=== PATIENT | female | born 1955 | race Caucasian/White ===

== ENCOUNTER → 2017-12-30 11:51 | Outpatient (CLI) | payer BC, SELFPAY ==
--- NOTE | 2017-12-30 | DI.MG.S_ITS ---
BILATERAL DIGITAL SCREENING MAMMOGRAM 3D/2D WITH CAD: 12/30/2017 Comparison is made to exams dated: 12/16/2016 mammogram, 10/27/2015 mammogram, and 09/23/2014 mammogram - [facility]. The tissue of both breasts is heterogeneously dense. This may lower the sensitivity of mammography. Current study was also evaluated with a Computer Aided Detection (CAD) system. No significant masses, calcifications, or other findings are seen in either breast. There has been no significant interval change. IMPRESSION: NEGATIVE There is no mammographic evidence of malignancy. A 1 year screening mammogram is recommended. This exam was interpreted at Station ID: [id number]. NOTE: For mammograms, a report in lay terms will be sent to the patient. Approximately 15% of breast malignancies will not be visualized mammographically. In the management of a palpable breast mass, a negative mammogram must not discourage biopsy of a clinically suspicious lesion. Electronically Signed By: Chinmay sharp/mele:12/30/2017 15:28:55 letter sent: Normal Exam ACR BI-RADS Category 1: Negative 3341F
== END ==
PROVIDERS: PCP Family Medicine; Visit Provider Family Medicine
DX: Z12.31 Encounter for screening mammogram for malignant neoplasm of breast (principal)
CPT/HCPCS: 77063; 77067

== ENCOUNTER → 2018-08-21 10:03 | Outpatient (CLI) | payer BC, SELFPAY ==
[2018-08-21 11:36] LABS: Alanine Aminotransferase 30 IU/L (9-52); Albumin 4.7 g/dL (3.5-5.0); Albumin Globulin Ratio 1.6 (1.0-2.8); Alkaline Phosphatase 68 U/L (38-126); Aspartate Aminotransferase 39 IU/L (14-36); BUN Creatinine Ratio 22.9 (6-22); Bilirubin Total 0.5 mg/dL (0.2-1.3); Blood Urea Nitrogen 16 mg/dL (7-17); Calcium 9.8 mg/dL (8.4-10.2); Carbon Dioxide 32 mmol/L (22-32); Chloride 100 mmol/L (98-107); Cholesterol 204 mg/dL (140-199); Estimated Glomerular Filt Rate > 60.0 mL/min (>60); Glucose 91 mg/dL (80-110); HDL Cholesterol 75 mg/dL (40-60); HEMOLYSIS < 15 (0-50); LDL Cholesterol Calculated 116 mg/dL (<100); Potassium 4.3 mmol/L (3.4-5.1); Sodium 139 mmol/L (137-145); Total Protein 7.7 g/dL (6.3-8.2); Triglycerides 67 mg/dL (35-150)
[2018-08-21 11:53] LABS: Vitamin D 25 Hydroxy (D3) 36.8 ng/mL (30.0-100.0)
== END ==
PROVIDERS: PCP Family Medicine; Visit Provider Family Medicine
DX: E78.5 Hyperlipidemia, unspecified (principal); Z00.00 Encounter for general adult medical examination without abnormal findings; Z13.1 Encounter for screening for diabetes mellitus; M81.0 Age-related osteoporosis without current pathological fracture; Z13.220 Encounter for screening for lipoid disorders; Z13.6 Encounter for screening for cardiovascular disorders; Z82.49 Family history of ischemic heart disease and other diseases of the circulatory system
CPT/HCPCS: 36415; 80053; 80061; 82306

== ENCOUNTER → 2018-12-31 08:42 | Outpatient (CLI) | payer BC, SELFPAY ==
--- NOTE | 2018-12-31 | DI.MG.S_ITS ---
BILATERAL DIGITAL SCREENING MAMMOGRAM 3D/2D WITH CAD: 12/31/2018 CLINICAL: Routine screening. Comparison is made to exams dated: 12/30/2017 mammogram, 12/16/2016 mammogram, and 10/27/2015 mammogram - [facility]. The tissue of both breasts is heterogeneously dense. This may lower the sensitivity of mammography. Current study was also evaluated with a Computer Aided Detection (CAD) system. No significant masses, calcifications, or other findings are seen in either breast. There has been no significant interval change. IMPRESSION: NEGATIVE There is no mammographic evidence of malignancy. A 1 year screening mammogram is recommended. This exam was interpreted at Station ID: [id number]. NOTE: For mammograms, a report in lay terms will be sent to the patient. Approximately 15% of breast malignancies will not be visualized mammographically. In the management of a palpable breast mass, a negative mammogram must not discourage biopsy of a clinically suspicious lesion. Electronically Signed By: Brandie julian/mele:12/31/2018 09:11:56 letter sent: Normal Exam ACR BI-RADS Category 1: Negative 3341F
== END ==
PROVIDERS: PCP Family Medicine; Visit Provider Family Medicine
DX: Z12.31 Encounter for screening mammogram for malignant neoplasm of breast (principal)
CPT/HCPCS: 77063; 77067

== ENCOUNTER → 2019-03-30 08:39 | Outpatient (CLI) | payer BC, SELFPAY ==
[2019-03-30 11:03] LABS: Alanine Aminotransferase 30 IU/L (<35); Albumin 4.7 g/dL (3.5-5.0); Albumin Globulin Ratio 1.7 (1.0-2.8); Alkaline Phosphatase 56 U/L (38-126); Aspartate Aminotransferase 46 IU/L (14-36); Bilirubin Total 0.7 mg/dL (0.2-1.3); Blood Urea Nitrogen 15 mg/dL (7-17); Calcium 9.9 mg/dL (8.4-10.2); Carbon Dioxide 31 mmol/L (22-32); Chloride 98 mmol/L (98-107); Estimated Glomerular Filt Rate > 60.0 mL/min (>60); Globulin 2.7 g/dL (1.7-4.1); Glucose 77 mg/dL (80-110); HEMOLYSIS < 15 (0-50); Potassium 4.9 mmol/L (3.4-5.1); Sodium 138 mmol/L (137-145); Total Protein 7.4 g/dL (6.3-8.2)
== END ==
PROVIDERS: PCP Family Medicine; Visit Provider Family Medicine
DX: R94.5 Abnormal results of liver function studies (principal)
CPT/HCPCS: 36415; 80053

== ENCOUNTER → 2019-04-09 10:12 | Outpatient (CLI) | payer BC, SELFPAY ==
[2019-04-13 09:09] LABS: Hepatitis A Antibody IgM NONREACTIVE; Hepatitis Acute Panel Interp 0.04; Hepatitis B Core Antibody IgM NONREACTIVE; Hepatitis B Surface Antigen NONREACTIVE; Hepatitis C Antibody NONREACTIVE
== END ==
PROVIDERS: PCP Family Medicine; Visit Provider Family Medicine
DX: R94.5 Abnormal results of liver function studies (principal)
CPT/HCPCS: 36415; 80074

== ENCOUNTER → 2019-07-28 10:58 | Outpatient (CLI) | payer BC, SELFPAY ==
--- NOTE | 2019-07-28 | DI.MRI.S_ITS ---
PROCEDURE: MR BRAIN (IAC) WWO CON INDICATIONS: Unspecified sensorineural hearing loss TECHNIQUE: Noncontrast sagittal T1 spin echo, axial FLAIR, axial gradient echo, axial diffusion and ADC through the brain. Axial thin-slice 3D CISS (with coronal reformatted images), coronal TruFISP, axial T1 spin echo with fat saturation through the internal auditory canals. After the administration of contrast, thin slice axial and coronal T1 spin echo with fat saturation through the internal auditory canals, and axial T1 spin echo with fat saturation through the brain. COMPARISON: None. FINDINGS: Image quality: Excellent. Cerebellopontine angles: No cerebellopontine angle masses. Inner ear structures appear normally formed. No suspicious enhancement in the internal auditory canal or along the course of the 7th cranial nerve. CSF spaces: Ventricles are normal in size and shape. No extra-axial fluid collections. Basal cisterns are patent. Brain: No intracranial bleeds or mass effects. Olivares-white matter interface is intact. No abnormal intracranial enhancement. Brain parenchymal volume loss is seen. Chronic small vessel ischemic changes are seen. Diffusion weighted images demonstrate no acute ischemic insults. Brainstem appears normal. Normal intravascular flow voids are present. A nonenhancing likely arachnoid cyst can be seen along the medial aspect of the distal anterior tip of the temporal horn of the left lateral ventricle. Skull and face: Calvarial marrow signal is normal. Orbits appear normal. Sinuses: Focal mild to moderate mucosal thickening is seen within the right maxillary sinus. Sinuses and mastoids are otherwise clear. IMPRESSION: No masses or abnormal enhancement are seen within the cerebellopontine angle cisterns or within the internal auditory canals. Note is made of age-appropriate brain parenchymal volume loss and chronic small vessel ischemic changes. Incidental note is made of: Focal right maxillary sinus disease Likely arachnoid cyst adjacent to the temporal tip of the left lateral ventricle Dictated by: Lamonte Dugan M.D. on 07/28/2019 at 11:25 Approved by: Lamonte Dugan M.D. on 07/28/2019 at 11:29
== END ==
PROVIDERS: PCP Family Medicine; Referring Provider Otolaryngology; Visit Provider Otolaryngology
DX: H90.5 Unspecified sensorineural hearing loss (principal); J32.0 Chronic maxillary sinusitis
CPT/HCPCS: 70553

== ENCOUNTER → 2019-12-23 | Outpatient (CLI) | payer BC, SELFPAY | PROVIDERS: PCP Family Medicine; Referring Provider Internal Medicine; Visit Provider Internal Medicine | DX: Z23 Encounter for immunization (principal) | CPT/HCPCS: 90471; 90686 ==

== ENCOUNTER → 2020-01-10 13:14 | Outpatient (CLI) | payer BC, SELFPAY ==
--- NOTE | 2020-01-10 13:16 | DI.US.S_ITS ---
ULTRASOUND OF LEFT BREAST: 01/10/2020 CLINICAL: Focal left breast pain x 3 weeks. Comparison is made to exams dated: 01/10/2020 mammogram, 12/31/2018 mammogram, 12/30/2017 mammogram, 12/16/2016 mammogram, 10/27/2015 mammogram, and 09/23/2014 mammogram - [facility]. Real-time ultrasound of the left breast was performed. Olivares scale images of the real-time examination were reviewed. No significant abnormalities were seen sonographically in the left breast. Specifically, no finding to explain the patient's pain. IMPRESSION: NEGATIVE There is no sonographic correlate to the patient's left breast pain, and no evidence of malignancy. Return to annual mammogram screening schedule is recommended. Findings and recommendations were conveyed to the patient at time of exam. This exam was interpreted at Station ID: [id number]. Electronically Signed By: Fern walters/:01/10/2020 14:28:37 letter sent: Normal Exam Ultrasound BI-RADS: 1 Negative
--- NOTE | 2020-01-10 13:16 | DI.MG.S_ITS ---
BILATERAL DIGITAL DIAGNOSTIC MAMMOGRAM 3D/2D: 01/10/2020 CLINICAL: Left breast pain. Comparison is made to exams dated: 12/31/2018 mammogram, 12/30/2017 mammogram, and 12/16/2016 mammogram - [facility]. The tissue of both breasts is heterogeneously dense. This may lower the sensitivity of mammography. No significant masses, calcifications, or other findings are seen in either breast. Specifically, no finding to explain the patient's lateral breast pain. IMPRESSION: INCOMPLETE: NEEDS ADDITIONAL IMAGING EVALUATION There is no abnormality seen in the left breast to correspond with the pain in the lateral aspect. Ultrasound is recommended for full evaluation and was performed immediately following this exam. This exam was interpreted at Station ID: [id number]. NOTE: For mammograms, a report in lay terms will be sent to the patient. Approximately 15% of breast malignancies will not be visualized mammographically. In the management of a palpable breast mass, a negative mammogram must not discourage biopsy of a clinically suspicious lesion. Electronically Signed By: Fern walters/:01/10/2020 13:58:40 ACR BI-RADS Category 0: Incomplete 3340F
== END ==
PROVIDERS: PCP Family Medicine; Referring Provider Registered Nurse; Visit Provider Registered Nurse
DX: R92.8 Other abnormal and inconclusive findings on diagnostic imaging of breast (principal); N64.4 Mastodynia
CPT/HCPCS: 76642; 77066; G0279

== ENCOUNTER → 2020-04-07 11:07 | Outpatient (CLI) | payer BC, SELFPAY ==
[2020-04-07] MEDS: COVID-19 VACC #1, MRNA(MOD) 100 MCG/0.5 ML VIAL IM (11:15)
== END ==
PROVIDERS: PCP Family Medicine; Visit Provider Internal Medicine
DX: Z23 Encounter for immunization (principal)
CPT/HCPCS: 0011A; 91301

== ENCOUNTER → 2020-05-05 12:12 | Outpatient (CLI) | payer BC, SELFPAY ==
[2020-05-05] MEDS: COVID-19 VACC #2, MRNA(MOD) 100 MCG/0.5 ML VIAL IM (12:26)
== END ==
PROVIDERS: PCP Family Medicine; Visit Provider Internal Medicine
DX: Z23 Encounter for immunization (principal)
CPT/HCPCS: 0012A; 91301

== ENCOUNTER → 2020-08-04 14:51 | Outpatient (CLI) | payer BC, SELFPAY ==
--- NOTE | 2020-08-04 14:53 | DI.MG.S_ITS ---
UNILATERAL LEFT DIGITAL DIAGNOSTIC MAMMOGRAM 3D/2D: 08/04/2020 CLINICAL: Left breast pain. Comparison is made to exams dated: 01/10/2020 ultrasound, 01/10/2020 mammogram, and 12/31/2018 mammogram - [facility]. The tissue of left breast is heterogeneously dense. This may lower the sensitivity of mammography. No significant masses, calcifications, or other findings are seen in the breast. IMPRESSION: INCOMPLETE: NEEDS ADDITIONAL IMAGING EVALUATION There is no abnormality seen in the left breast to correspond with the area of clinical concern and pain in the lower outer quadrant, however, ultrasound is recommended. Future imaging is recommended as follows: 01/10/2021 screening mammogram. This exam was interpreted at Station ID: [id number]. NOTE: For mammograms, a report in lay terms will be sent to the patient. Approximately 15% of breast malignancies will not be visualized mammographically. In the management of a palpable breast mass, a negative mammogram must not discourage biopsy of a clinically suspicious lesion. Electronically Signed By: Tristin King acr/:08/04/2020 15:30:08 Entry: - 08/07/2020 09:58:22 ACR BI-RADS Category 0: Incomplete 3340F
--- NOTE | 2020-08-04 14:53 | DI.US.S_ITS ---
ULTRASOUND OF LEFT BREAST: 08/04/2020 CLINICAL: Diffuse left breast pain. Comparison is made to exams dated: 08/04/2020 mammogram, 01/10/2020 ultrasound, 01/10/2020 mammogram, 12/31/2018 mammogram, and 12/30/2017 mammogram - [facility]. Real-time and continuous wave Doppler ultrasound of the left breast were performed. No abnormality which corresponds with the area of pain is identified. IMPRESSION: NEGATIVE There is no sonographic evidence of malignancy. There is no abnormality seen in the left breast to correspond with the pain in the superior lateral, in the inferior lateral, and in the inferior medial quadrants, however, clinical followup is recommended. A 1 year screening mammogram is recommended. Future imaging is recommended as follows: 01/10/2021 screening mammogram. This exam was interpreted at Station ID: [id number]. Electronically Signed By: Tristin King acr/:08/04/2020 17:37:58 letter sent: Clinical Evaluation Ultrasound BI-RADS: 1 Negative
== END ==
PROVIDERS: PCP Family Medicine; Referring Provider Nurse Practitioner; Visit Provider Nurse Practitioner
DX: R92.2 Inconclusive mammogram (principal); N64.4 Mastodynia; M79.622 Pain in left upper arm; M54.6 Pain in thoracic spine
CPT/HCPCS: 76642; 77065; G0279

== ENCOUNTER → 2020-10-04 08:11 | Outpatient (CLI) | payer BC, SELFPAY ==
[2020-10-04 09:55] LABS: Add Manual Diff / Slide Review NO; Basophils Absolute Auto 0 /uL (0-100); Basophils Percent Auto 1.3 % (0-2); Eosinophils Absolute Auto 200 /uL (0-450); Eosinophils Percent Auto 4.8 % (2-4); Hematocrit 37.6 % (36-46); Hemoglobin 12.5 g/dL (12.0-16.0); Lymphocytes Absolute Auto 1500 /uL (1100-4500); Lymphocytes Percent Auto 42.9 % (25-40); Mean Corpuscular HGB Conc 33.3 % (30-36); Mean Corpuscular Hemoglobin 30.9 PG (26-34); Mean Corpuscular Volume 92.6 fL (80-100); Monocytes Absolute Auto 300 /uL (0-900); Monocytes Percent Auto 9.3 % (3-14); Neutrophils Absolute Auto 1500 /uL (1500-7000); Neutrophils Percent Auto 41.7 % (50-75); Platelet Count 222 X10^3/uL (150-400); Red Blood Cell Count 4.05 X10^6/uL (4.0-5.2); Red Cell Distribution Width 13.8 % (11.6-14.8); White Blood Cell Count 3.6 X10^3/uL (4.5-11.0)
[2020-10-04 10:31] LABS: Alanine Aminotransferase 34 IU/L (<35); Albumin 4.4 g/dL (3.5-5.0); Albumin Globulin Ratio 1.6 (1.0-2.8); Alkaline Phosphatase 57 U/L (38-126); Aspartate Aminotransferase 58 IU/L (14-36); BUN Creatinine Ratio 36.7 (6-22); Bilirubin Total 0.9 mg/dL (0.2-1.3); Blood Urea Nitrogen 22 mg/dL (7-17); Calcium 9.7 mg/dL (8.4-10.2); Carbon Dioxide 28 mmol/L (22-32); Chloride 101 mmol/L (98-107); Cholesterol 211 mg/dL (140-199); Estimated Glomerular Filt Rate > 60.0 mL/min (>60); Globulin 2.8 g/dL (1.7-4.1); Glucose 83 mg/dL (80-110); HDL Cholesterol 81 mg/dL (40-60); HEMOLYSIS 16 (0-50); LDL Cholesterol Calculated 119 mg/dL (<100); Potassium 4.5 mmol/L (3.4-5.1); Sodium 136 mmol/L (137-145); Total Protein 7.2 g/dL (6.3-8.2); Triglycerides 54 mg/dL (35-150)
[2020-10-10 10:43] LABS: TSH w/ Reflex to FT4 3.61 uIU/mL (0.47-4.68)
== END ==
PROVIDERS: PCP Family Medicine; Referring Provider Family Medicine; Visit Provider Family Medicine
DX: G43.009 Migraine without aura, not intractable, without status migrainosus (principal); R53.83 Other fatigue; Z91.09 Other allergy status, other than to drugs and biological substances
CPT/HCPCS: 36415; 80053; 80061; 84443; 85025

== ENCOUNTER → 2020-11-09 11:16 | Outpatient (CLI) | payer BC, SELFPAY ==
--- NOTE | 2020-11-09 11:18 | DI.US.S_ITS ---
PROCEDURE: US EXTREMELY NONVASC UPPER RT INDICATIONS: SWELLING ON RT UPPER ARM TECHNIQUE: Real-time scanning was performed of the right upper arm , with image documentation. COMPARISON: None. FINDINGS: In the area of palpable abnormality, there is subcutaneous fat echogenicity. There are not well defined borders however the area measures roughly 3.3 x 0.5 x 0.9 cm. IMPRESSION: Fat echogenicity in the area of palpable abnormality which likely reflects non encapsulated subcutaneous lipoma. Recommend clinical management and follow-up. Dictated by: Garret Porter M.D. on 11/09/2020 at 13:32 Approved by: Garret Porter M.D. on 11/09/2020 at 13:34
== END ==
PROVIDERS: PCP Family Medicine; Referring Provider Family Medicine; Visit Provider Family Medicine
DX: L72.9 Follicular cyst of the skin and subcutaneous tissue, unspecified (principal)
CPT/HCPCS: 76882

== ENCOUNTER → 2021-01-11 10:49 | Outpatient (CLI) | payer BC, SELFPAY ==
--- NOTE | 2021-01-11 10:50 | DI.MG.S_ITS ---
BILATERAL DIGITAL SCREENING MAMMOGRAM 3D/2D WITH CAD: 01/11/2021 CLINICAL: Routine screening. Comparison is made to exams dated: 08/04/2020 mammogram, 01/10/2020 mammogram, and 12/31/2018 mammogram - [facility]. The tissue of both breasts is heterogeneously dense. This may lower the sensitivity of mammography. Current study was also evaluated with a Computer Aided Detection (CAD) system. No significant masses, calcifications, or other findings are seen in either breast. There has been no significant interval change. IMPRESSION: NEGATIVE There is no mammographic evidence of malignancy. A 1 year screening mammogram is recommended. This exam was interpreted at Station ID: [id number]. NOTE: For mammograms, a report in lay terms will be sent to the patient. Approximately 15% of breast malignancies will not be visualized mammographically. In the management of a palpable breast mass, a negative mammogram must not discourage biopsy of a clinically suspicious lesion. Electronically Signed By: Tristin King acr/penrad:01/11/2021 13:38:41 letter sent: Normal Exam ACR BI-RADS Category 1: Negative 3341F
== END ==
PROVIDERS: PCP Family Medicine; Referring Provider Family Medicine; Visit Provider Family Medicine
DX: Z12.31 Encounter for screening mammogram for malignant neoplasm of breast (principal)
CPT/HCPCS: 77063; 77067

== ENCOUNTER → 2022-01-09 12:10 | Outpatient (CLI) | payer MEDICARE, OTHER, SELFPAY ==
--- NOTE | 2022-01-09 12:13 | DI.RAD.S_ITS ---
PROCEDURE: XR LUMBAR SPINE MIN 4V INDICATIONS: Low back pain TECHNIQUE: 5 views of the lumbar spine were acquired, including bilateral oblique views. COMPARISON: None. FINDINGS: Bones: 5 nonrib-bearing vertebrae are present. Mild dextroscoliosis. Small vertebral body osteophytes. No vertebral body compression fractures. No suspicious bony lesions. Soft tissues: Overlying bowel gas pattern is normal. No suspicious soft tissue calcifications. Oblique images: No pars defects. IMPRESSION: No compression fracture. Mild scoliosis and degenerative change. Dictated by: Tristin Mendoza M.D. on 01/09/2022 at 15:00 Approved by: Tristin Mendoza M.D. on 01/09/2022 at 15:01
== END ==
PROVIDERS: PCP Family Medicine; Referring Provider Nurse Practitioner Family; Visit Provider Nurse Practitioner Family
DX: M54.50 Low back pain, unspecified (principal); M41.9 Scoliosis, unspecified
CPT/HCPCS: 72110

== ENCOUNTER → 2022-01-14 11:32 | Outpatient (CLI) | payer MEDICARE, OTHER, SELFPAY ==
--- NOTE | 2022-01-14 | DI.MG.S_ITS ---
BILATERAL DIGITAL SCREENING MAMMOGRAM 3D/2D WITH CAD: 01/14/2022 CLINICAL: Routine screening. Comparison is made to exams dated: 01/11/2021 mammogram, 08/04/2020 mammogram, 01/10/2020 mammogram, and 12/31/2018 mammogram - [facility]. Both breasts are heterogeneously dense, which may obscure small masses (category c / 51-75% glandular tissue). Current study was also evaluated with a Computer Aided Detection (CAD) system. No significant masses, calcifications, or other findings are seen in either breast. There has been no significant interval change. IMPRESSION: NEGATIVE There is no mammographic evidence of malignancy. A 1 year screening mammogram is recommended. Based on the Tyrer Cuzick model (a risk assessment model) the patient's lifetime risk is 10.1% and her 10 year risk is 4.9%. According to the ACR, ACS, and NCCN guidelines, an annual breast MRI exam along with mammogram is recommended if the patient's lifetime risk is 20% or greater. This exam was interpreted at Station ID: [id number]. NOTE: For mammograms, a report in lay terms will be sent to the patient. Approximately 15% of breast malignancies will not be visualized mammographically. In the management of a palpable breast mass, a negative mammogram must not discourage biopsy of a clinically suspicious lesion. Electronically Signed By: Aaron Tesfaye M.D., jr/mele:01/14/2022 15:37:33 letter sent: Normal Exam ACR BI-RADS Category 1: Negative 3341F
== END ==
PROVIDERS: PCP Family Medicine; Referring Provider Family Medicine; Visit Provider Family Medicine
DX: Z12.31 Encounter for screening mammogram for malignant neoplasm of breast (principal)
CPT/HCPCS: 77063; 77067

== ENCOUNTER → 2022-03-27 08:44 | Outpatient (CLI) | payer MEDICARE, SELFPAY ==
[2022-03-27 09:34] LABS: Hematocrit 38.9 % (36-46); Hemoglobin 12.9 g/dL (12.0-16.0); Mean Corpuscular HGB Conc 33.1 % (30-36); Mean Corpuscular Volume 90.5 fL (80-100); Platelet Count 254 X10^3/uL (150-400); Red Blood Cell Count 4.29 X10^6/uL (4.0-5.2); Red Cell Distribution Width 14.3 % (11.6-14.8); White Blood Cell Count 3.9 X10^3/uL (4.5-11.0)
[2022-03-27 09:54] LABS: HEMOLYSIS < 15 (0-50); Iron 73 ug/dL (37-170)
[2022-03-27 09:58] LABS: BUN Creatinine Ratio 16.9 (6-22); Blood Urea Nitrogen 11 mg/dL (7-17); Calcium 9.4 mg/dL (8.4-10.2); Carbon Dioxide 27 mmol/L (22-32); Chloride 99 mmol/L (98-107); Cholesterol 217 mg/dL (140-199); Estimated Glomerular Filt Rate > 60 mL/min (>60); Glucose 87 mg/dL (80-110); HDL Cholesterol 75 mg/dL (40-60); HEMOLYSIS < 15 (0-50); LDL Cholesterol Calculated 131 mg/dL (<100); Potassium 4.3 mmol/L (3.4-5.1); Sodium 136 mmol/L (137-145); Triglycerides 56 mg/dL (35-150)
[2022-03-27 10:05] LABS: Percent Iron Saturation 21 % (15-50); Total Iron Binding Capacity 355 ug/dL (265-497); Transferrin 273 mg/dL (206-381)
[2022-03-27 10:29] LABS: Ferritin 15 ng/mL (11-264)
[2022-03-27 10:43] LABS: Vitamin B12 814 pg/mL (239-931)
== END ==
PROVIDERS: PCP Family Medicine; Referring Provider Family Medicine; Visit Provider Family Medicine
DX: D64.9 Anemia, unspecified (principal); E78.00 Pure hypercholesterolemia, unspecified; E55.9 Vitamin D deficiency, unspecified
CPT/HCPCS: 36415; 80048; 80061; 82607; 82728; 83540; 83550; 85027

== ENCOUNTER → 2022-06-03 06:38 | Outpatient (CLI) | payer MEDICARE, SELFPAY ==
--- NOTE | 2022-06-03 06:39 | DI.US.S_ITS ---
PROCEDURE: US CAROTID DOPPLER BI INDICATIONS: HISTORY OF PFO TECHNIQUE: Color and pulse Doppler interrogation was performed of both carotid systems, with image documentation and velocity measurements. COMPARISON: None. FINDINGS: Stenosis calculations are based on SRU (Society of Radiologists in Ultrasound) criteria. Right side: Brachial blood pressure: 100/66 mm Hg. Common carotid artery peak systolic velocity: 60.2 cm/sec. Internal carotid artery peak systolic velocity: 68.5 cm/sec. Internal carotid artery end diastolic velocity: 64.4 cm/sec. External carotid artery peak systolic velocity: 67.4 cm/sec. ICA/CCA peak systolic ratio: 1.14. Olivares scale imaging description: No atheromatous plaque or calcification Percent internal carotid artery stenosis: No internal carotid artery stenosis. Vertebral artery: Flow direction is antegrade. Left side: Brachial blood pressure: 104/71 mm Hg. Common carotid artery peak systolic velocity: 82.3 cm/sec. Internal carotid artery peak systolic velocity: 80.2 cm/sec. Internal carotid artery end diastolic velocity: 92.5 cm/sec. External carotid artery peak systolic velocity: 67.4 cm/sec. ICA/CCA peak systolic ratio: 1.12. Olivares scale imaging description: No atheromatous plaque or calcification Percent internal carotid artery stenosis: No stenosis of the internal carotid artery. Vertebral artery: Flow direction is antegrade. IMPRESSION: No sonographic evidence for stenosis of the bilateral internal carotid arteries. Dictated by: Brandie Hunt M.D. on 06/03/2022 at 8:16 Approved by: Brandie Hunt M.D. on 06/03/2022 at 8:20
== END ==
PROVIDERS: PCP Family Medicine; Referring Provider Family Medicine; Visit Provider Family Medicine
DX: Q21.12 Patent foramen ovale (principal); G43.009 Migraine without aura, not intractable, without status migrainosus; Z82.49 Family history of ischemic heart disease and other diseases of the circulatory system
CPT/HCPCS: 93880

== ENCOUNTER → 2022-07-01 07:10 | Outpatient (CLI) | payer MEDICARE, SELFPAY ==
--- NOTE | 2022-07-01 07:11 | DI.US.S_ITS ---
PROCEDURE: US PELVIC COMPLETE INDICATIONS: POST MENOPAUSAL BLEEDING TECHNIQUE: Real-time scanning was performed of the pelvic organs, with image documentation. Additional endovaginal scanning was necessary due to incomplete visualization of the adnexal and endometrial structures by transabdominal scanning. COMPARISON: [facility], , PELVIC COMPLETE, 02/23/2015, 13:30. FINDINGS: Uterus: Uterus is retroverted and normal in size at 6.1 x 3.8 x 4.2 cm. The myometrium is homogeneous. 3 fibroids are present as follows: -midline posterior uterine body, intramural, 1.8 x 1.5 x 1.4 centimeters. -midline anterior uterine body, intramural, 1.4 x 0.9 x 0.8 centimeters. -midline uterine body, submucosal, 1.4 x 1.3 x 1.6 centimeters. May correspond to previous submucosal fibroid which measured 1.4 x 1.4 x 1.6 centimeters. The endometrium is not well visualized likely due to the submucosal fibroid. Ovaries: The right ovary measures 3.2 x 2.2 x 3.9 cm, with a calculated ovarian volume of 14 cc. A simple cyst is present in the right ovary measuring 3.3 x 2.7 x 3.1 centimeters. The left ovary is not visualized, likely due to bowel gas and/or senescent change. Other: No pathologic free abdominal or pelvic fluid. IMPRESSION: 1. Three uterine fibroids are present as above, 1 of which is submucosal in position. 2. The endometrium is not well visualized likely due to the submucosal fibroid. 3. A 3.3 cm simple cyst is present in the right ovary. Could consider imaging follow-up, for example in 3-6 months or other interval at clinical discretion. We strive to produce accurate, complete, and clear reports of imaging services. To assist us in improving patient care, this report was composed using standard report templates and voice recognition software. Therefore, it may contain abnormal punctuation, insertions and/or omissions. Occasional wrong-word or sound-alike substitutions may occur. Though we review the report and make efforts to correct it, we do recommend that the report be read carefully in proper context to recognize any text inaccuracies. Dictated by: Anthony Conti M.D. on 07/01/2022 at 9:10 Approved by: Anthony Conti M.D. on 07/01/2022 at 9:20
== END ==
PROVIDERS: PCP Family Medicine; Referring Provider Obstetrics & Gynecology; Visit Provider Obstetrics & Gynecology
DX: N95.0 Postmenopausal bleeding (principal); D25.0 Submucous leiomyoma of uterus; D25.1 Intramural leiomyoma of uterus; N83.291 Other ovarian cyst, right side
CPT/HCPCS: 76830; 76856

== ENCOUNTER → 2023-01-16 07:14 | Outpatient (CLI) | payer MEDICARE, SELFPAY ==
--- NOTE | 2023-01-16 07:15 | DI.MG.S_ITS ---
BILATERAL DIGITAL SCREENING MAMMOGRAM 3D/2D WITH CAD: 01/16/2023 CLINICAL: Routine screening. Comparison is made to exams dated: 01/11/2021 mammogram, 01/14/2022 mammogram, 08/04/2020 mammogram, 01/10/2020 mammogram, and 12/31/2018 mammogram - [facility]. Both breasts are heterogeneously dense, which may obscure small masses (category c / 51-75% glandular tissue). Current study was also evaluated with a Computer Aided Detection (CAD) system. There are benign post operative findings in the left breast. No significant masses, calcifications, or other findings are seen in either breast. There has been no significant interval change. IMPRESSION: BENIGN There is no mammographic evidence of malignancy. A 1 year screening mammogram is recommended. Based on the Tyrer Cuzick model (a risk assessment model) the patient's lifetime risk is 9.6% and her 10 year risk is 4.9%. According to the ACR, ACS, and NCCN guidelines, an annual breast MRI exam along with mammogram is recommended if the patient's lifetime risk is 20% or greater. This exam was interpreted at Station ID: [id number]. NOTE: For mammograms, a report in lay terms will be sent to the patient. Approximately 15% of breast malignancies will not be visualized mammographically. In the management of a palpable breast mass, a negative mammogram must not discourage biopsy of a clinically suspicious lesion. Electronically Signed By: Tristin urena/mele:01/16/2023 12:07:22 letter sent: Normal Exam ACR BI-RADS Category 2: Benign Finding(s) 3342F
== END ==
PROVIDERS: PCP Family Medicine; Referring Provider Family Medicine; Visit Provider Family Medicine
DX: Z12.31 Encounter for screening mammogram for malignant neoplasm of breast (principal)
CPT/HCPCS: 77063; 77067

== ENCOUNTER → 2023-08-18 17:20 | Outpatient (CLI) | payer MEDICARE, SELFPAY ==
--- NOTE | 2023-08-18 17:22 | DI.RAD.S_ITS ---
PROCEDURE: XR LUMBAR SPINE 6V W BENDING INDICATIONS: back pain TECHNIQUE: 7 views of the lumbar spine acquired, including flexion and extension views. COMPARISON: [facility], CR, XR LUMBAR SPINE MIN 4V, 01/09/2022, 12:16. FINDINGS: Bones: 5 nonrib-bearing vertebrae are present. There is rightward scoliotic curvature with apex at L1-2 There is trace retrolisthesis of L2 on L3, L3 on L4. Multilevel degenerative disc and foraminal narrowing are present overall most prominent at L4-5 and L5-S1.. No vertebral body compression fractures. No suspicious bony lesions. Soft tissues: Overlying bowel gas pattern is normal. No suspicious soft tissue calcifications. Flexion/extension: There is normal range of motion, with preserved normal alignment. IMPRESSION: Multilevel degenerative changes relatively stable compared to prior exam. Dictated by: Lucia Myles M.D. on 08/19/2023 at 16:37 Approved by: Lucia Myles M.D. on 08/19/2023 at 16:38
[2023-08-18 17:45] LABS: Hematocrit 37.5 % (36-46); Hemoglobin 12.4 g/dL (12.0-16.0); Mean Corpuscular Volume 90.7 fL (80-100); Platelet Count 247 X10^3/uL (150-400); Red Blood Cell Count 4.14 X10^6/uL (4.0-5.2); Red Cell Distribution Width 14.4 % (11.6-14.8)
[2023-08-18 17:50] LABS: Hemoglobin A1C% w Est Avg Glu 5.5 % (4.0-6.0)
[2023-08-18 18:15] LABS: Alanine Aminotransferase 36 IU/L (<35); Albumin 4.7 g/dL (3.5-5.0); Albumin Globulin Ratio 1.6 (1.0-2.8); Alkaline Phosphatase 63 U/L (38-126); Aspartate Aminotransferase 49 IU/L (14-36); BUN Creatinine Ratio 29.3 (6-22); Bilirubin Total 0.5 mg/dL (0.2-1.3); Blood Urea Nitrogen 17 mg/dL (7-17); Calcium 9.3 mg/dL (8.4-10.2); Carbon Dioxide 30 mmol/L (22-32); Chloride 104 mmol/L (98-107); Cholesterol 232 mg/dL (140-199); Estimated Glomerular Filt Rate > 60 mL/min (>60); Globulin 2.9 g/dL (1.7-4.1); Glucose 97 mg/dL (80-110); HDL Cholesterol 89 mg/dL (40-60); HEMOLYSIS < 15 (0-50); LDL Cholesterol Calculated 129 mg/dL (<100); Sodium 138 mmol/L (137-145); Total Protein 7.6 g/dL (6.3-8.2); Triglycerides 72 mg/dL (35-150)
[2023-08-18 18:44] LABS: TSH w/ Reflex to FT4 3.74 uIU/mL (0.47-4.68)
[2023-08-21 12:30] LABS: Albumin 4.2 g/dL (2.9-4.4); Alpha-1-Globulin 0.2 g/dL (0.0-0.4); Alpha-2-Globulin 0.6 g/dL (0.4-1.0); Gamma Globulin 0.9 g/dL (0.4-1.8); Globulin Total 2.7 g/dL (2.2-3.9); Protein, Total 6.9 g/dL (6.0-8.5)
== END ==
PROVIDERS: PCP Internal Medicine; Referring Provider Internal Medicine; Visit Provider Internal Medicine
DX: E78.2 Mixed hyperlipidemia; R73.01 Impaired fasting glucose; G62.9 Polyneuropathy, unspecified; R77.8 Other specified abnormalities of plasma proteins
CPT/HCPCS: 36415; 72114; 80053; 80061; 83036; 84155; 84165; 84443; 85027

== ENCOUNTER → 2023-08-19 08:37 | Outpatient (CLI) | payer MEDICARE, SELFPAY ==
[2023-08-19 09:28] LABS: Creatine Kinase 298 U/L (30-135)
== END ==
PROVIDERS: PCP Internal Medicine; Visit Provider Internal Medicine
DX: M60.9 Myositis, unspecified (principal)
CPT/HCPCS: 82550

== ENCOUNTER → 2023-08-26 09:45 | Outpatient (CLI) | payer MEDICARE, SELFPAY ==
--- NOTE | 2023-08-26 09:47 | DI.RAD.S_ITS ---
PROCEDURE: XR DEXA AXIAL SKELETON INDICATIONS: postmenopausal COMPARISON: [facility], , DEXA AXIAL SKELETON, 06/12/2017, 10:37. FINDINGS: Lumbar Spine: Bone mineral density 1.130 g/cm2, T score -0.5, normal. Left Hip: Bone mineral density 0.855 g/cm2, T score -0.7, unchanged. Left Femoral Neck: Bone mineral density is 0.695 g/cm2, T score -1.4, osteopenia. Right Hip: Bone mineral density 0.816 g/cm2, T score -0.1, unchanged. Right Femoral Neck: Bone mineral density is 0.688 g/cm2, T score -1.4, osteopenia. Fracture Risk Calculation (when applicable): 10-year fracture risk of a major osteoporotic fracture 9.2 and of a hip fracture 1.0. (T score greater or equal to -1.0 to: NORMAL) (T score from -1.1 to -2.4: OSTEOPENIA) (T score less than or equal to -2.5: OSTEOPOROSIS) IMPRESSION: Osteopenia. No significant change from prior. Follow-up guidelines as follows: Osteoporosis: Consider a repeat DEXA and Vertebral Fracture Assessment (VFA) exam in 2 years or sooner if medically necessary, to reassess this patient's status. Osteopenia: Consider a repeat DEXA in 2-3 years to reassess this patient's status, or if there is a new clinical indication. Normal: Consider a repeat DEXA in 5 years or sooner, or if there is a new clinical indication. All treatment decisions require clinical judgment and consideration of individual patient factors, including patient preferences, comorbidities, previous drug use, risk factors not captured in the FRAX model (e.g., frailty, falls, vitamin D deficiency, increased bone turnover, interval significant decline in bone density ) and possible under- or over-estimation of fracture risk by FRAX. In addition, the NOF Guide recommends that FDA-approved medical therapies be considered in postmenopausal women and men age >= 50 years with a: * Hip or vertebral (clinical or morphometric) fracture * T-score of <=-2.5 at the spine or hip * Ten-year fracture probability by FRAX of >= 3% for hip fracture or >=20% for major osteoporotic fracture. People with diagnosed cases of osteoporosis or at high risk for fracture should have regular bone mineral density tests. For patients eligible for Medicare, routine testing is allowed once every 2 years. The testing frequency can be increased to one year for patients who have rapidly progressing disease, those who are receiving or discontinuing medical therapy to restore bone mass, or have additional risk factors. Dictated by: Fercho Duff M.D. on 08/26/2023 at 11:11 Approved by: Fercho Duff M.D. on 08/26/2023 at 11:22
== END ==
LOC: RAD 09:46
PROVIDERS: Family Provider Internal Medicine; PCP Internal Medicine; Referring Provider Internal Medicine; Visit Provider Internal Medicine
DX: M85.89 Other specified disorders of bone density and structure, multiple sites (principal)
CPT/HCPCS: 77080

== ENCOUNTER → 2023-09-24 16:09 | Outpatient (CLI) | payer MEDICARE, SELFPAY ==
--- NOTE | 2023-09-24 16:10 | DI.MRI.S_ITS ---
PROCEDURE: MR LUMBAR SPINE WO CON INDICATIONS: abnormal EMG TECHNIQUE: Noncontrast sagittal T1 spin echo and T2 fast echo, sagittal STIR, and T2 fast spin echo through the lumbar spine. In cases with scoliosis, additional coronal T2 fast spin echo may be performed. COMPARISON: [facility], CR, XR LUMBAR SPINE 6V W BENDING, 08/18/2023, 17:29. FINDINGS: Image quality: Excellent. Alignment and Curvature: There is normal bony alignment. Bone Marrow: Marrow is of normal overall signal. No acute vertebral body compression fractures. Spinal Cord: Conus medullaris terminates at the L1-2 level. Visualized cord demonstrates normal signal and size. Paraspinous Soft Tissues: No paravertebral masses. Benign T1p-jwnenivmoaep cysts are seen in the left kidney. T12-L1: Mild disc desiccation. No significant spinal canal stenosis or neural foraminal narrowing. L1-L2: Mild disc desiccation. No significant spinal canal stenosis or neural foraminal narrowing. L2-L3: Disc desiccation and mild loss of disc space height with mild circumferential disc bulging. Findings result in mild narrowing of the spinal canal and mild bilateral neural foraminal narrowing. L3-L4: Disc desiccation and mild circumferential disc bulging as well as mild bilateral facet hypertrophy. Findings result in mild narrowing of the spinal canal as well as moderate left and pvbv-ev-bjfbygpm right neural foraminal narrowing. L4-L5: Disc desiccation and mild loss of disc space height with moderate circumferential disc bulging as well as mild bilateral facet hypertrophy and buckling of the ligamentum flavum. Findings result in mild narrowing of the spinal canal and moderate bilateral neural foraminal narrowing. L5-S1: Mild circumferential disc bulging and qsnq-ny-faddrbas bilateral facet hypertrophy. Findings result in mild narrowing of the neural foramina without significant spinal canal stenosis. IMPRESSION: 1. Qukb-vq-jegcoauf multilevel degenerative disc disease and facet hypertrophy as described in detail in the body of the report. 2. No high-grade spinal canal stenosis. 3. Moderate neural foraminal narrowing at the L3-4 and L4-5 levels. No high-grade neural foraminal narrowing. Approved by: Anthony Walker M.D. on 09/24/2023 at 21:12
== END ==
PROVIDERS: Family Provider Internal Medicine; PCP Internal Medicine; Referring Provider Internal Medicine; Visit Provider Internal Medicine
DX: M51.36 Other intervertebral disc degeneration, lumbar region (principal); M51.37 Other intervertebral disc degeneration, lumbosacral region; M47.816 Spondylosis without myelopathy or radiculopathy, lumbar region; M47.817 Spondylosis without myelopathy or radiculopathy, lumbosacral region; M48.061 Spinal stenosis, lumbar region without neurogenic claudication; M48.07 Spinal stenosis, lumbosacral region; M54.50 Low back pain, unspecified; R94.131 Abnormal electromyogram [EMG]
CPT/HCPCS: 72148

== ENCOUNTER → 2023-10-07 15:35 | Outpatient (CLI) | payer MEDICARE, SELFPAY ==
[2023-10-07 17:24] LABS: Erythrocyte Sedimentation Rate 10 MM/HR (0-20)
[2023-10-07 17:53] LABS: C-Reactive Protein Quant < 0.5 mg/dL (<1.0)
== END ==
PROVIDERS: Family Provider Internal Medicine; PCP Internal Medicine; Referring Provider Internal Medicine; Visit Provider Internal Medicine
DX: G62.9 Polyneuropathy, unspecified (principal); M35.3 Polymyalgia rheumatica
CPT/HCPCS: 36415; 85651; 86140

== ENCOUNTER → 2024-01-21 07:25 | Outpatient (CLI) | payer MEDICARE, SELFPAY ==
--- NOTE | 2024-01-21 07:26 | DI.MG.S_ITS ---
BILATERAL DIGITAL SCREENING MAMMOGRAM 3D/2D WITH CAD: 01/21/2024 CLINICAL: Routine screening. Comparison is made to exams dated: 01/16/2023 mammogram, 01/14/2022 mammogram, 01/11/2021 mammogram, 08/04/2020 mammogram, 01/10/2020 mammogram, and 12/31/2018 mammogram - [facility]. The breasts are heterogeneously dense, which may obscure small masses (category c / 51-75% glandular tissue). Current study was also evaluated with a Computer Aided Detection (CAD) system. There are benign post operative findings in the left breast. No significant masses, calcifications, or other findings are seen in either breast. There has been no significant interval change. IMPRESSION: BENIGN There is no mammographic evidence of malignancy. A 1 year screening mammogram is recommended. Based on the Tyrer Cuzick model (a risk assessment model) the patient's lifetime risk is 9.2% and her 10 year risk is 4.8%. According to the ACR, ACS, and NCCN guidelines, an annual breast MRI exam along with mammogram is recommended if the patient's lifetime risk is 20% or greater. This exam was interpreted at Station ID: [id number]. NOTE: For mammograms, a report in lay terms will be sent to the patient. Approximately 15% of breast malignancies will not be visualized mammographically. In the management of a palpable breast mass, a negative mammogram must not discourage biopsy of a clinically suspicious lesion. Electronically Signed By: Tabatha Ochoa M.D., Ph.D. jose/mele:01/21/2024 13:08:31 letter sent: Normal Exam ACR BI-RADS Category 2: Benign
== END ==
PROVIDERS: Family Provider Internal Medicine; PCP Internal Medicine; Referring Provider Internal Medicine; Visit Provider Internal Medicine
DX: Z12.31 Encounter for screening mammogram for malignant neoplasm of breast (principal); R92.333 Mammographic heterogeneous density, bilateral breasts
CPT/HCPCS: 77063; 77067

== ENCOUNTER → 2024-01-28 06:59 | Outpatient (CLI) | payer MEDICARE, SELFPAY ==
--- NOTE | 2024-01-28 07:00 | DI.US.S_ITS ---
PROCEDURE: US ABDOMEN LIMITED INDICATIONS: abnormal LFTs TECHNIQUE: Real-time scanning was performed of the abdominal and retroperitoneal organs, with image documentation. COMPARISON: None. FINDINGS: Liver: Liver is normal in size and homogeneous in echotexture. 2 simple cysts largest measuring 1.1 cm. Both are in the left lobe. Gallbladder: No gallstones. No wall thickening. No pericholecystic edema. Negative sonographic Larsen's sign. Biliary ducts: Intrahepatic bile ducts are non-dilated. Extrahepatic bile duct caliber measures 5.9 mm. Normal is 6-7 mm or less in diameter, or 10 mm or less post-cholecystectomy. Pancreas: Visualized portions of the pancreas are sonographically normal. Miscellaneous: No free abdominal fluid. IMPRESSION: Simple hepatic cysts. Dictated by: Lucia Myles M.D. on 01/28/2024 at 17:59 Approved by: Lucia Myles M.D. on 01/28/2024 at 17:59
== END ==
PROVIDERS: Family Provider Internal Medicine; PCP Internal Medicine; Referring Provider Internal Medicine; Visit Provider Internal Medicine
DX: K76.89 Other specified diseases of liver (principal); R79.89 Other specified abnormal findings of blood chemistry
CPT/HCPCS: 76705

== ENCOUNTER → 2024-10-13 11:57 | Outpatient (CLI) | payer MEDICARE, SELFPAY ==
[2024-10-13 12:55] LABS: Hematocrit 38.0 % (36-46); Hemoglobin 13.0 g/dL (12.0-16.0); Mean Corpuscular HGB Conc 34.2 % (30-36); Mean Corpuscular Hemoglobin 31.5 PG (26-34); Mean Corpuscular Volume 92.0 fL (80-100); Platelet Count 221 X10^3/uL (150-400)
[2024-10-13 13:19] LABS: HEMOLYSIS < 15 (0-50); Iron 114 ug/dL (37-170)
[2024-10-13 13:21] LABS: Alanine Aminotransferase 31 IU/L (<35); Albumin 4.8 g/dL (3.5-5.0); Albumin Globulin Ratio 1.8 (1.0-2.8); Alkaline Phosphatase 64 U/L (38-126); Blood Urea Nitrogen 10 mg/dL (7-17); Calcium 10.0 mg/dL (8.4-10.2); Carbon Dioxide 30 mmol/L (22-32); Chloride 99 mmol/L (98-107); Cholesterol 222 mg/dL (140-199); Creatine Kinase 329 U/L (30-135); Estimated Glomerular Filt Rate > 60 mL/min (>60); Globulin 2.6 g/dL (1.7-4.1); Glucose 83 mg/dL (70-99); HDL Cholesterol 80 mg/dL (40-60); HEMOLYSIS < 15 (0-50); Potassium 4.4 mmol/L (3.4-5.1); Sodium 135 mmol/L (137-145); Total Protein 7.4 g/dL (6.3-8.2); Triglycerides 136 mg/dL (35-150)
[2024-10-13 13:30] LABS: Percent Iron Saturation 33 % (15-50); Total Iron Binding Capacity 343 ug/dL (265-497); Transferrin 297 mg/dL (206-381)
[2024-10-13 13:53] LABS: Ferritin 18 ng/mL (11-264)
== END ==
PROVIDERS: Family Provider Internal Medicine; PCP Internal Medicine; Referring Provider Internal Medicine; Visit Provider Internal Medicine
DX: R79.89 Other specified abnormal findings of blood chemistry (principal); K75.4 Autoimmune hepatitis; E78.2 Mixed hyperlipidemia; E83.119 Hemochromatosis, unspecified
CPT/HCPCS: 80053; 80061; 82550; 82728; 83516; 83540; 83550; 85027; 86038

== ENCOUNTER → 2025-02-01 17:00 | Outpatient (CLI) | payer MEDICARE, SELFPAY ==
--- NOTE | 2025-02-01 17:18 | DI.MG.S_ITS ---
MM screening mammo BI: 02/01/2025. BI-RADS: 1 CLINICAL: 69-year old female for bilateral screening mammogram. Tyrer-Cuzick lifetime risk of 8.4%. No personal or first-degree family history of breast cancer. The patient had a prior left breast biopsy. PRIOR EXAMS 01/21/2024, 01/16/2023, 01/14/2022, 01/11/2021, MAMMOGRAPHY TECHNIQUE: 2D and 3D (tomosynthesis) digital mammographic views obtained, with additional images as needed for full coverage. Current study was also evaluated with a Computer Aided Detection (CAD) system. DENSITY C. The breasts are heterogeneously dense, which may obscure small masses. MAMMOGRAPHY FINDINGS Bilateral: No suspicious mass, asymmetry, microcalcification, or other abnormality seen. IMPRESSION: * No evidence of malignancy. RECOMMENDATIONS Bilateral * Annual screening mammography. OVERALL ASSESSMENT CATEGORY BI-RADS-1: Negative. The [employer] recommends annual screening mammography beginning at age 40 for women with average risk of breast cancer. ELECTRONICALLY SIGNED: Chema Rendon M.D. on 02/02/2025 at 06:47:44 AM PT Interpreting Station ID: [id number]
== END ==
LOC: MAMMO 17:00
PROVIDERS: Family Provider Internal Medicine; PCP Internal Medicine; Referring Provider Internal Medicine; Visit Provider Internal Medicine
DX: Z12.31 Encounter for screening mammogram for malignant neoplasm of breast (principal); R92.333 Mammographic heterogeneous density, bilateral breasts
CPT/HCPCS: 77063; 77067